=== PATIENT | male | born 1985 | race Caucasian/White ===

== ENCOUNTER 2021-08-07 18:34 | Emergency (ER) | payer OTHER ==
[~2021-08-07] VITALS: Ht 172.7 cm; Wt 88.5 kg
== END 2021-08-07 19:55 | disposition home or self-care (01) ==
LOC: ER 18:34
DX: K13.29 Other disturbances of oral epithelium, including tongue (principal)
CPT/HCPCS: 99282

== ENCOUNTER 2022-02-13 06:10 | Day surgery (SDC) | payer OTHER | END 2022-02-14 00:27 | disposition home or self-care (01) | LOC: MHTC 06:10 | DX: I34.0 Nonrheumatic mitral (valve) insufficiency (principal); I45.2 Bifascicular block; I10 Essential (primary) hypertension ==